=== PATIENT | female | born 1980 | race American Indian/Alaskan Native ===

== ENCOUNTER 2021-01-19 17:11 | Emergency (ER) | payer SELFPAY | END 2021-01-19 17:50 | disposition left against medical advice (07) | LOC: ED 17:11 ==

== ENCOUNTER 2022-03-28 00:38 | Emergency (ER) | payer SELFPAY ==
[2022-03-28 00:55] VITALS: BP 151/84
== END 2022-03-28 11:36 | disposition left against medical advice (07) ==
LOC: ED 00:38
DX: R21 Rash and other nonspecific skin eruption (principal); Z53.21 Procedure and treatment not carried out due to patient leaving prior to being seen by health care provider